=== PATIENT | male | born 1990 | race Caucasian/White ===

== ENCOUNTER 2022-10-18 08:57 | Emergency (ER) | payer BC | END 2022-10-18 09:39 | disposition home or self-care (01) | LOC: JP.ED 08:57 | DX: S30.861A Insect bite (nonvenomous) of abdominal wall, initial encounter (principal); A69.20 Lyme disease, unspecified; Z86.16 Personal history of COVID-19; W57.XXXA Bitten or stung by nonvenomous insect and other nonvenomous arthropods, initial encounter | CPT/HCPCS: 99281 ==